=== PATIENT | female | born 1980 | race Two or more races ===

== ENCOUNTER 2022-11-30 13:48 | Emergency (ER) | payer MEDICAID ==
--- NOTE | 2022-11-30 14:04 | NUR ---
PT WAS TRIAGED AND STATED THAT SCOOTER SENT HER HERE FOR AN MRI, EXPLAINED TO PT THAT WE DONT DO MRI FOR THE REASON THAT SHE CAME FOR, CHRONIC BACK PAIN FOR 1 YEAR, AND THAT WE CAN DO A CT. PT STATED THAT SHE DOES NOT WISH TO BE SEEN BY AND MD. PT LEFT FACILTY PRIOR TO BEING SEEN BY A MD.
== END 2022-11-30 14:08 | disposition left against medical advice (07) ==
LOC: ER 14:04
DX: Z53.21 Procedure and treatment not carried out due to patient leaving prior to being seen by health care provider (principal)